=== PATIENT | male | born 1965 | race Caucasian/White ===

== ENCOUNTER 2021-01-30 19:20 | Emergency (ER) | payer OTHER ==
[~2021-01-30] VITALS: Ht 172.7 cm; Wt 85.0 kg
[2021-01-30 23:57] VITALS: BP 135/77
[2021-01-31] MEDS ORDERED: HYDROcodone/APAP 7.5/325MG 1 TAB TABLET PO ONE (01:00)
[2021-01-31] MEDS ORDERED: HYDR-2761 PO ×2 (01:27→01:31)
--- NOTE | 2021-01-31 01:32 | PHYS DOC ---
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 Patient states pain is exacerbated with elbow extension. Some relief with Tylenol and ibuprofen but states "tonight I just couldn't take it anymore." Patient is right-hand dominant. Denies any injury or loss of consciousness. Takes no anticoagulants. Also reports feeling as if he has a bump on his humeral shaft. Review of Systems: Review of Systems: Constitutional: Denies fever or chills. [] Eyes: Denies change in visual acuity. [] HENT: Denies nasal congestion or sore throat. [] Respiratory: Denies cough or shortness of breath. [] Cardiovascular: Denies chest pain or edema. [] GI: Denies nausea, vomiting, . [] Musculoskeletal: Denies back pain or joint deformity Integument: Denies rash or bruising Neurologic: Denies headache or neck pain Psychiatric: Denies depression or anxiety. [] Heart Score: C/O Chest Pain: No Risk Factors: Risk Factors: DM, Current or recent (<one month) smoker, HTN, HLP, family history of CAD, obesity. Risk Scores: Score 0 - 3: 2.5% MACE over next 6 weeks - Discharge Home Score 4 - 6: 20.3% MACE over next 6 weeks - Admit for Clinical Observation Score 7 - 10: 72.7% MACE over next 6 weeks - Early Invasive Strategies Current Medications: Current Medications Medications (Trade) Dose Ordered Sig/Kim Start Time Stop Time Status Last Admin Dose Admin Acetaminophen/ Hydrocodone Bitart (Lortab 7.5/325) 1 tab 1X ONCE 01/31/21 01:00 01/31/21 01:01 DC 01/31/21 00:52 1 TAB Allergies: Allergies: Allergies Coded Allergies Type Severity Reaction Last Updated Verified No Known Drug Allergies 01/30/21 No Physical Exam: PE: Constitutional: Well developed, well nourished, no acute distress, non-toxic appearance. HENT: Normocephalic, atraumatic, Eyes: EOMI, conjunctiva normal, no discharge. Neck: Normal range of motion, supple, no midline neck pain Cardiovascular: S1/2 present, regular rhythm Lungs & Thorax: Speaking in full sentences, bilateral equal chest rise, no ta chypnea or increased work of breathing Skin: Warm, dry, no erythema, no rash. [] Extremities: Pain over medial epicondyle-cannot appreciate any swellling, able to flex and extend left elbow, no pain over left shoulder or left wrist, equal radial pulses, median/ulnar/radial nerve sensation intact, no illicited pain over left humerus Neurologic: Alert and oriented X 3, no focal deficits noted. [] Psychologic: Affect normal, judgement normal, mood normal. [] Current Patient Data: Vital Signs: Vital Signs Date Time Temp Pulse Resp B/P (MAP) Pulse Ox O2 Delivery O2 Flow Rate FiO2 01/31/21 00:52 18 94 01/30/21 23:57 98.4 79 135/77 Room Air 98.4 EKG: EKG: [] Radiology/Procedures: Radiology/Procedures: Patient and informed of findings. Posterior long-arm splint applied by medical staff. The splint is checked by myself, with appropriate stabilization of the injury. Distal capillary refill normal and distal neurologic function intact [] Course & Med Decision Making: Course & Med Decision Making Pertinent Labs and Imaging studies reviewed. (See chart for details) Initial concern was for blunt left elbow injury with medial epicondyle fracture, possible left humerus contusion. Patient able to move his left upper extremity with no neurovascular deficits. Placed in a long-arm splint with shoulder sling. Was educated on analgesia, side effects and warnings with taking narcotic medications, to not take with other sedatives. Pt was discharged prior to x-ray report but I had had a conversation with pt about how all narcotic medications are now tracked electronically. Upon radiology read I d/w Dr. Byrne, pt had similar, chronic findings on x-ray from January 19 at [facility]. Ktracs reviewed and patient received 20 tablets of norco 7.5mg on 01/19/21 and 12 tablets norco 5mg on 09/23/20. I would be hesitant to prescribe any future narcotic medication to this pt. Will discharge home with strict ED return precautions were given for repeat injury, severe pain, neurologic deficits skin color changes. Encouraged urgent outpatient follow-up with PMD and orthopedic surgery within 3 to 5 days. Life-threatening processes were considered but are low suspicion at this time, given history, physical exam and ED workup. Pt was educated on all prescription medications and adverse effects. All patient's questions were answered and pt was stable at time of discharge. Life/limb-threatening differential includes but is not limited to, avascular necrosis, septic arthritis, malignancy, compartment syndrome, fracture/ligamentous injury/overuse, decompression sickness, seronegative spondyloarthropathies, trauma including dislocation/fracture, Lyme disease, lupus, arthritis differentials, gout/pseudogout or decompression sickness. I have spoken with the patient and/or caregivers. I explained the patient's condition, diagnoses and treatment plan based on the information available to me at this time. I have answered the patient and/or caregiver's questions and addressed any concerns. The patient and/or caregivers have a good understanding of patient's diagnosis, condition and treatment plan as can be expected at this point. Vital signs have been stable. Patient's condition is stable and appropriate for discharge from the emergency department. Patient will pursue further outpatient evaluation with primary care physician or other designated or consulting physician as outlined in the discharge instructions. The patient and/or caregivers are agreeable to this plan of care and follow-up instructions have been explained in detail. The patient and/or caregivers have received these instructions in written form and have expressed an understanding of the discharge instructions. The patient and/or caregivers are aware that any significant change of condition or worsening of symptoms should prompt immediate return to this or the closest emergency department or call to 911. Saul Disclaimer: Saul Disclaimer: This electronic medical record was generated, in whole or in part, using a voice recognition dictation system. Departure Departure Impression: Primary Impression: Fracture of medial epicondyle of left humerus Additional Impression: Chronic pain of left elbow Disposition: 01 HOME / SELF CARE / HOMELESS Condition: STABLE Referrals: CK SADLER (PCP) Follow-up with your primary care physician OR FOLLOW UP WITH FAMILY MEDICINE: [address], [address] [place] [address] Patient Instructions: Cast or Splint Care, Elbow Fracture, Epicondyle with [facility] Additional Instructions: FOLLOW UP WITH ORTHOPEDICS: FOR DEFINITIVE MANAGEMENT within the next week of medial epicondyle fracture Orthopaedic Surgery [address] [place], [address] [place] [address] EMERGENCY DEPARTMENT GENERAL DISCHARGE INSTRUCTIONS Thank you for coming to [facility] Emergency Department (ED) today and trusting us with you care. We trust that you had a positive experience in our Emergency Department. If you wish to speak to the department management, you may call the Director at [phone]. YOUR FOLLOW UP INSTRUCTIONS ARE FOLLOWS: 1. Do you have a private Doctor? If you do not have a private doctor, please ask for a resource list of physicians or clinics that may be able to assist you with follow up care. 2. The Emergency Physicain has interpreted your x-rays. The X-Ray specialist will also review them. If there is a change in the findings, you will be notified in 48 hours when at all possible. 3. A lab test or culture has been done, your results will be reviewed and you will be notified if you need a change in treatment. ADDITIONAL INSTRUCTIONS AND INFORMATION: 1. Your care today has been supervised by a physician who is specially trained in emergency care. Many problems require more than one evaluation for a complete diagnosis and treatment. We recommend that you schedule your follow up appointment as recom mended to ensure complete treatment of you illness or injury. If you are unable to obtain follow up care and continue to have a problem, or if your condition worsens, we recommend that you return to the ED. 2. We are not able to safely determine your condition over the phone nor are we able to give sound medical advice over the phone. For these safety reasons, if you call for medical advice we will ask you to come to the ED for further evaluation. 3. If you have any questions regarding these discharge instructions please call the ED at [phone]. SAFETY INFORMATION: In the interest of safety, wellness, and injury prevention; we encourage you to wear your sealbelt, if you smoke; quite smoking, and we encourage family to use a protective helmet for bicycling and other sporting events that present an increased risk for head injury. IF YOUR SYMPTOMS WORSEN OR NEW SYMPTOMS DEVELOP, OR YOU HAVE CONCERNS ABOUT YOUR CONDITION; OR IF YOUR CONDITION WORSENS WHILE YOU ARE WAITING FOR YOUR FOLLOW UP APPOINTMENT; EITHER CONTACT YOUR PRIMARY CARE DOCTOR, THE PHYSICIAN WHOSE NAME AND NUMBER YOU WERE GIVEN, OR RETURN TO THE ED IMMEDIATELY. Scripts Hydrocodone Bit/Acetaminophen (HYDROCODONE-APAP 5-325 ) 1 Tab Tablet 1 TAB PO PRN Q6HRS PRN for PAIN for 4 Days, #16 TAB 0 Refills Prov: LEONIDES TAYLOR DO 01/31/21 LEONIDES TAYLOR DO Jan 31, 2021 01:32
--- NOTE | 2021-01-31 03:26 | RAD ---
Left humerus 2 views: Reason for examination: Left arm pain. Comparison is made to previous examination dated 01/19/2021. No acute fracture is seen. There is a corticated ossicle at the medial condyle which is unchanged. Th e bone density is normal. No abnormal periosteal reaction is seen. Shoulder and elbow joints appear t o be maintained. IMPRESSION: Chronic changes at the medial epicondyle of the distal humerus which has a chronic stable appearance. No acute abnormality of the left humerus. Left elbow 3 views: Comparison is made to previous study dated 01/19/2021. Ossicle remains present at the medial epicondyle which has a corticated margin. Adjacent small ossifi c densities are also present between this ossicle and the medial upper condyle. These are unchanged a nd may represent chronic trauma. No acute fracture or dislocation is seen. Bone density is normal. No abnormal periosteal reaction is seen. Joint spaces are maintained. IMPRESSION: Chronic bony changes at the medial epicondyle which are stable. No acute abnormality at the left elbow. Electronically signed by: Anjelica Byrne MD (01/31/2021 3:23 AM) [facility]
== END 2021-01-31 02:23 | disposition home or self-care (01) ==
LOC: ER 19:20
DX: S42.302A Unspecified fracture of shaft of humerus, left arm, initial encounter for closed fracture (principal); G89.29 Other chronic pain; I10 Essential (primary) hypertension; E78.5 Hyperlipidemia, unspecified; W22.8XXA Striking against or struck by other objects, initial encounter; Y93.89 Activity, other specified; Y92.89 Other specified places as the place of occurrence of the external cause; Y99.8 Other external cause status
CPT/HCPCS: 29105; 73060; 73080; 99284